=== PATIENT | female | born 1990 | race Caucasian/White ===

== ENCOUNTER → 2016-03-28 | Outpatient (CLI) | payer BC, OTHER ==
[~2016-03-28] VITALS: Ht 162.6 cm; Wt 61.2 kg
[~2016-03-28] MED LIST: AMBIEN 5 MG TABL5 M1 PO; B12INJ; BIRTH CONTROL PO; CARDIZEM PO; CELEBREX 200 M200 MG PO; CHLORTHALIDONE25 MG PO; COMPAZINE10 M1 PO; ESTRAGEN PO; ESTROGEN PO; HYDROCODON-ACE1 EAC5 PO; HYOSCYAMIN125 MCG/5; LEVSIN PO; LOPRESSOR 50 MG50 M1 PO; NEURONTIN 300300 M1 PO; OXYCONTIN15 MG PO; PLAQUENIL200 MG PO; SAVELLA50 MG PO; TOPROL XL50 MG PO; VITAMIN D 5050000 I1 PO; VOLTAREN GEL 1100 G1 TOP; ZIPSOR25 MG PO; quinine PO
--- NOTE | ~2016-03-28 | HPC ---
[facility] [place] [address] PAIN MANAGEMENT CONSULTATION Name: KARLA ELENA Room #: REG [facility] Cameron.#: [id number] Admission: 03/28/16 Attend Phys: Álvaro Knowles DO Discharge: Date of : 90 Report #: [id number] THIS REPORT FOR: //name// CC: Álvaro Prajapati MD DATE OF SERVICE: 03/28/2016 CHIEF COMPLAINT: Bilateral knee pain, bilateral leg pain, bilateral ankle pain, generalized joint pain. HISTORY OF PRESENT ILLNESS: As you know, patient is a 25-year-old female who suffers from generalized joint pain, mostly involving bilateral knees, bilateral ankles and periodically the elbows and hands. She continues workup from a rheumatologic standpoint, but no specific etiology has been determined. She returns today in followup visit for medication management. She has begun to wean off of her hydrocodone which is very good sign that her pain is improving. She returns today in followup visit for continuing weaning of hydrocodone therapy. ALLERGIES: CONTRAST AGENT, SULFA, MORPHINE, AMOXICILLIN. CURRENT MEDICATIONS: OxyContin 15 mg 3 times a day, hydrocodone 10/325 three times a day, diclofenac gel apply topically up to 4 times a day, Plaquenil 200 mg twice a day, zolpidem 5 mg p.o. at bedtime, metoprolol 50 mg once a day, control pill once a day, celecoxib 200 mg twice a day. SOCIAL HISTORY: The patient denies tobacco, alcohol or IV illicit drug use. 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 She is accompanied by her mother today. PHYSICAL EXAMINATION: VITAL SIGNS: Blood pressure 113/77, pulse 66, respiratory rate 14, unlabored. The patient 98% on room air. Height 5 feet 4 inches tall, weight 135 pounds, BMI calculated 23.2. GENERAL: Well-developed, well-nourished, well-hydrated 25-year-old female appearing stated age, placing current pain score no greater than 4/10. HEENT: Normocephalic, atraumatic. Pupil's equal, round, reactive to light. Extraocular muscles are intact. EXTREMITIES: Show no clubbing, no cyanosis, no edema. MUSCULOSKELETAL: There is some tenderness to palpation noted throughout all the myofascial pain receptors for myofascial pain syndrome such as fibromyalgia. There are no gross deformities of the hands, elbows, wrists, knees, ankles. On examination, there is palpatory tenderness over these joints generally. [address] [address] PAIN MANAGEMENT CONSULTATION Name: KARLA ELENA Room #: REG [facility]#: [id number] Admission: 03/28/16 Attend Phys: Álvaro Knowles DO Discharge: Date of : 90 Report #: [id number] ASSESSMENT: 1. Myofascial pain. 2. Bilateral lower extremity pain. 3. Bilateral knee pain. 4. Bilateral hip pain. 5. Bilateral ankle pain. 6. Chronic intractable pain. PLAN: 1. The patient has returned today in followup visit for adjustment of medications. The patient and I have discussed that recent evaluations need to reduce opioid dosing to below 90 morphine equivalents per day. The patient has been doing an excellent job of weaning slowly off her opioids. She was at an OxyContin 15 mg 4 times a day, taking hydrocodone 10/325 three times a day. She has been able to reduce to OxyContin 15 mg 3 times a day and hydrocodone 10/325 twice a day. We will stabilize with this dose. If this dose fall under the new CDC guidelines, we will attempt to continue reduction at our followup visit in 3 months. 2. The patient was provided a prescription of OxyContin 15 mg dose 1 tab p.o. t.i.d., #90, releases of today, 4 weeks from today, 8 weeks from today, 3 months' worth of medication. 3. The patient was provided a prescription of hydrocodone 10/325 one tab p.o. b.i.d. p.r.n. pain, #60, releases of today, 4 weeks from today, 8 weeks from today. I did advise the patient today if she can reduce the use of this medication even further, we will ultimately be able to discontinue its use entirely which I believe would be a bonus is in this patient's case. 4. The patient was provided a prescription of Voltaren gel 1% solution applied topically up to 4 times a day. She was given 5 tubes 100 grams each with multiple refills for 3 months. 5. We will see the patient back in followup visit in 3 months for medication management, earlier if she wishes to continue the weaning more rapidly. <ELECTRONICALLY SIGNED> By: Álvaro Knowles DO 03/29/16 0832 [id number] Álvaro Knowles DO /nt
[2016-03-28 10:55] VITALS: BP 113/77
== END ==
LOC: PAIN 07:07
DX: M25.562 Pain in left knee (principal); M25.561 Pain in right knee; M79.1 Myalgia

== ENCOUNTER → 2016-06-13 | Outpatient (CLI) | payer BC, OTHER ==
[~2016-06-13] VITALS: Ht 162.6 cm; Wt 61.2 kg
--- NOTE | ~2016-06-13 | HPC ---
[facility] [place] [address] [address] PAIN MANAGEMENT CONSULTATION Name: KARLA ELENA Room #: REG [facility] Cameron.#: [id number] Admission: 06/13/16 Attend Phys: Álvaro Konwles DO Discharge: Date of : 90 Report #: [id number] THIS REPORT FOR: //name// CC: Álvaro Prajapati MD DATE OF SERVICE: 06/13/2016 REFERRING PHYSICIAN: Dr. Freddie Prajapati. CHIEF COMPLAINT: Bilateral knee pain, bilateral leg pain, bilateral ankle pain, and generalized joint pain. HISTORY OF PRESENT ILLNESS: As you know, the patient is a 25-year-old female, who suffers from generalized pain disorder, involving mainly the weightbearing joints of the lower extremities including hips, knees, and ankles, but is also experiencing elbow and hand pain. She continues workup from a rheumatologic standpoint. Yet, no discernible etiology has been provided that may be causing the patient's current pain. She is now placing pain score at 2/10. States riding in a car, walking across hard floor, standing, rain, cold weather changes exacerbate symptoms. Medications, heat and cold compresses, rest and remaining inside appears to improve pain. She returns today in followup visit understanding our need to continue weaning her opioids to maintain the lowest most effective dose within the CDC guidelines range. She denied any side effects to the medication. She is not having any early refills. She has not lost or had prescriptions stolen. She has shown no aberrancy with the use of the medication. She has been on time with a request of therapy. She returns with no changes in her medical history. ALLERGIES: CONTRAST AGENT, SULFA, MORPHINE, and AMOXICILLIN. CURRENT MEDICATIONS: Diclofenac gel applied topically up to 4 times a day, hydrocodone/acetaminophen 10/325 1 tab q. 12 hours p.r.n. pain, OxyContin 15 mg 3 times a day, Plaquenil 200 mg twice a day, metoprolol 50 mg once a day, control pill once a day, Celecoxib 200 mg twice a day. SOCIAL HISTORY: The patient denies tobacco, alcohol, IV or illicit drug use. 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 She is unaccompanied today. IMAGING: No new imaging available. PHYSICAL EXAMINATION: VITAL SIGNS: Blood pressure 103/73, pulse 70, respiratory rate 14 and unlabored. The patient is 98% on room air. Height 5 feet 4 inches tall, weight [facility] [address] [place] [address] PAIN MANAGEMENT CONSULTATION Name: KARLA ELENA Room #: REG [facility]#: [id number] Admission: 06/13/16 Attend Phys: Álvaro Knowles DO Discharge: Date of : 90 Report #: [id number] 135 pounds, BMI calculated at 23.2. GENERAL: Well-developed, well-nourished, and well-hydrated. A 25-year-old female appearing her stated age. Pain is rated around 2/10. HEENT: Normocephalic and atraumatic. Pupils are equal, round, and reactive to light. Extraocular muscles are intact. Speech fluent. LUNGS: Clear. No wheezing, rhonchi, or rales. CARDIOVASCULAR: Regular. No appreciable gallop or rub. ABDOMEN: Soft, nontender, and nondistended. EXTREMITIES: Show no clubbing, no cyanosis, no edema. MUSCULOSKELETAL: The patient again shows no changes in the joint spaces. There is no erosive process noted from gross examination. Physical examination of the joints show no specific crepitus or reduction in mobility. Pain is elicited with palpation of all the joints of the lower extremities, including hips, knees, and ankles. Elbows and hands are also painful to palpation, though again no gross abnormalities. ASSESSMENT: 1. Myofascial pain. 2. Bilateral lower extremity pain. 3. Bilateral knee pain. 4. Bilateral hip pain. 5. Bilateral ankle pain. 6. Chronic intractable pain. PLAN: 1. The patient has returned today in followup visit with generalized arthritides of unknown origin. The patient continues to experience pain level of 2/10. She states that exacerbating factors are typically cold weather, weightbearing type of activities, but appears to be alleviated with medications and rest. The patient continues workup through rheumatology though no specific etiology for her generalized arthritides has been noted. She is currently taking OxyContin 15 mg 3 times a day along with hydrocodone 10/325 twice a day, which is under the CDC guideline recommendations for opioid management. She wishes to remain at this level at present. If further changes in the guidelines do occur, I did advise the patient, we would need to adjust to her main complaint. The patient states she understood and wishes to continue the medications at current dosing. Interestingly, it is noted the patient's pain score is actually down from her previous evaluation. This could be due to increasing warmer weather or the possibility that opioids are not providing as much benefit as originally believed. We will review this again at followup visit. 2. The patient was provided a prescription of OxyContin 15 mg dose one tab p.o. q. 8 hours, given #90 with releases of today, 4 weeks from today, and 8 weeks from today. 3 months' worth of medication. 3. The patient was provided a prescription of hydrocodone/acetaminophen 10/325 1 tab p.o. q. 12 hours p.r.n. for pain, #60, releases of today, 4 weeks from [facility] [address] [place] [address] PAIN MANAGEMENT CONSULTATION Name: KARLA ELENA Room #: REG [facility].R.#: [id number] Admission: 06/13/16 Attend Phys: Álvaro Knowles DO Discharge: Date of : 90 Report #: [id number] today, and 8 weeks from today. 4. The patient was provided refill of her Voltaren gel 500 gram tubes. She is to apply 4 inches topically up to 4 times a day with this medication. 5. We will see the patient back in followup visit in 3 months or earlier, if adjustments need to be made or specific etiology for her general arthritic symptoms are discovered. By: [id number] Álvaro Knowles DO /nt
[2016-06-13 12:46] VITALS: BP 103/73
== END | disposition home or self-care (01) ==
LOC: PAIN 07:01
DX: M79.1 Myalgia (principal); G89.29 Other chronic pain; M25.561 Pain in right knee; M25.562 Pain in left knee; M25.551 Pain in right hip; M25.552 Pain in left hip; M25.571 Pain in right ankle and joints of right foot; M25.572 Pain in left ankle and joints of left foot

== ENCOUNTER → 2016-09-05 | Outpatient (CLI) | payer BC, OTHER ==
[~2016-09-05] VITALS: Ht 162.6 cm; Wt 60.3 kg
[~2016-09-05] MED LIST changes: +MS CONTIN15 MG PO
--- NOTE | ~2016-09-05 | HPC ---
[facility] [place] [address] PAIN MANAGEMENT CONSULTATION Name: KARLA ELENA Room #: REG [facility] Cameron.#: [id number] Admission: 09/05/16 Attend Phys: Álvaro Knowles DO Discharge: Date of : 90 Report #: [id number] THIS REPORT FOR: //name// CC: Álvaro Prajapati DATE OF SERVICE: 09/05/2016 CHIEF COMPLAINT: Bilateral knee pain, bilateral leg pain, bilateral ankle pain, generalized joint pain. HISTORY OF PRESENT ILLNESS: As you know, the patient is a 26-year-old female who has returned today in followup visit with continued generalized pain disorder involving mainly weightbearing joints, including bilateral ankles, knees, hips, and low back. She returns today with indications that she needs to come off OxyContin as her third constitution party payer is no longer willing to provide this medication. They have provided a list of more preferred medications, long-acting Dilaudid, long-acting morphine or long-acting oxymorphone. She returns today to discuss options for treatment. She is placing pain score at 2/10, states that she is doing very well with current medication therapy, but understands she needs to make this change as she can no longer afford the OxyContin medication. She returns to discuss options. ALLERGIES: CONTRAST AGENT, MORPHINE, AMOXICILLIN, SULFA. CURRENT MEDICATIONS: OxyContin 15 mg 3 times a day, hydrocodone 10/325 twice a day, diclofenac gel applied topically up to 3 times a day, Plaquenil 200 mg twice a day, Toprol-XL 50 mg once a day, control pills once a day, celecoxib 200 mg twice a day. SOCIAL HISTORY: The patient denies tobacco, alcohol, IV or illicit drug use. She is accompanied by her mother who is present in the room today. IMAGING: No new imaging available. PHYSICAL EXAMINATION: VITAL SIGNS: Blood pressure 103/71, pulse 73, respiratory rate 14 unlabored. The patient is 100% on room air. Height 5 feet 4 inches tall, weight 133 pounds, BMI calculated 22.8. GENERAL: Well-developed, well-nourished, well-hydrated 26-year-old female appearing her stated age. She is placing pain score today at 1/10. HEENT: Normocephalic, atraumatic. Pupils equal, round, reactive to light. EXTREMITIES: Show no clubbing, no cyanosis, no edema. MUSCULOSKELETAL: The patient does have some palpatory tenderness over the weightbearing joints, knees, ankles and hips today. Active and passive range of motion causes no real change in pain. There is no crep[place] [address] PAIN MANAGEMENT CONSULTATION Name: KARLA ELENA Room #: REG [facility]#: [id number] Admission: 09/05/16 Attend Phys: Álvaro Knowles DO Discharge: Date of : 90 Report #: [id number] There is no gross abnormality changes, no erosive process is noted on examination. There is no erythema on the joints themselves. No edema. Weightbearing does intensify pain bilaterally. ASSESSMENT: 1. Myofascial pain. 2. Bilateral knee pain, bilateral hip pain. 3. Bilateral lower extremity pain. 4. Bilateral ankle pain. 5. Chronic intractable pain. 6. Opioid dependency. PLAN: 1. The patient has returned today in followup visit. She indicates that her third constitution party payer would no longer cover her OxyContin medication. She has been on this medication for a very long period of time and is now reporting pain score of 1/10. 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 We need to make the adjustments today. The patient's preferred medications per her pharmacy are long-acting Dilaudid, morphine and oxymorphone. I have advised the patient at this time I would not be willing to place her on long-acting Dilaudid whether this is her preferred medication or not. Her condition does not warrant this level of opioid medication. In regards to the oxymorphone, recently the FDA has requested that the manufacturers of oxymorphone voluntarily remove that drug from the market, we will not be placing this patient on that medication. This leaves us with MS Merida. Unfortunately, the patient does indicate an allergic reaction to MORPHINE, she had indicated at one time possibly anaphylactic. We did discuss this with the patient today. She and her mother cannot remember the exact response and they are willing to trial morphine once again, but I have indicated that if truly anaphylactic reaction, we cannot place her on this medication, which then leaves us with only buprenorphine which would be handled in the Butrans patch. 2. The patient was given a prescription of morphine 15 mg dose 3 times a day, number 90. I did advise the patient if she truly determines that she had an anaphylactic reaction with this medication, she is not to fill this prescription. If her response was more of just a pruritus kind of issue, that is not a typical for morphine. We are limited in what we can provide the patient from an opioid standpoint per the third constitution party payer restrictions. I did give her a prescription of 90 tablets only for one month to trial. If her side effects are too profound, then I would recommend she discontinue immediately and we will make adjustments in therapy. 3. We would recommend the patient actually be on buprenorphine in the form of a patch, 15 mcg q. week. We would prefer this medication, but unfortunately coverage of this medication is fairly inconsistent. Ultimately, we will be placing the patient on this medication if she cannot tolerate the morphine as we are out of options for long-term therapy in her case. She would not warrant the [facility] [address] [place] [address] PAIN MANAGEMENT CONSULTATION Name: KARLA ELENA Room #: REG [facility] Teresa#: [id number] Admission: 09/05/16 Attend Phys: Álvaro Knowles DO Discharge: Date of : 90 Report #: [id number] use of a long-acting Dilaudid. We will not be placing the patient on oxymorphone as it is being voluntarily recalled or possibly going into litigation in regards to the dangerous aspect of that drug. This leaves us with fentanyl and buprenorphine and fentanyl patches are not indicated in this patient's case. 4. We will see the patient back in followup visit in 1 month. If she does find that she has anaphylactic reactions to Morphine, we would recommend she do not fill this medication and return to the clinic to receive a prescription for Butrans patch. By: [id number] Álvaro Knolwes, DO /nt
[2016-09-05 11:07] VITALS: BP 103/71
== END | disposition home or self-care (01) ==
LOC: PAIN 06:54
DX: M79.1 Myalgia (principal); M25.561 Pain in right knee; M25.562 Pain in left knee; M25.551 Pain in right hip; M25.552 Pain in left hip; M25.571 Pain in right ankle and joints of right foot; M25.572 Pain in left ankle and joints of left foot; G89.29 Other chronic pain; F11.20 Opioid dependence, uncomplicated; Z88.2 Allergy status to sulfonamides; Z88.8 Allergy status to other drugs, medicaments and biological substances

== ENCOUNTER → 2016-10-03 | Outpatient (CLI) | payer BC, OTHER ==
[~2016-10-03] VITALS: Ht 162.6 cm; Wt 59.0 kg
--- NOTE | ~2016-10-03 | HPC ---
[facility] [address] [address] [place] [address] PAIN MANAGEMENT CONSULTATION Name: KARLA ELENA Room #: REG [facility] Cameron.#: [id number] Admission: 10/03/16 Attend Phys: Álvaro Knowles DO Discharge: Date of : 90 Report #: [id number] THIS REPORT FOR: //name// CC: Álvaro ANDRE BOX Freddie Box DATE OF SERVICE: 10/03/2016 CHIEF COMPLAINT: Bilateral knee pain, bilateral leg pain, bilateral ankle pain, generalized joint pain. HISTORY OF PRESENT ILLNESS: As you know, the patient is a 26-year-old female who returns today in followup visit for medication management. We have adjusted her medications to address CDC guidelines for chronic pain management of 90 morphine equivalents or less. The patient continues workup from a rheumatology standpoint to determine the cause of her symptoms, though nothing has been shown to be positive to date. It is agreed upon the patient is experiencing some type of rheumatologic issue, but the definitive diagnosis eludes the positions. She has been referred back to our clinic for continuation of medication therapy. She is indicating pain levels of around 0-2/10; states her pain is chronic in nature, aching in sensation; exacerbated with riding in a car or hard floor, standing for long periods of time, rain and cold weather; improves with medications, heat, cold compresses and Icy Hot. She returns requesting refill on medication for the next 3 months. She denies any side effects to the medications provided at last visit. ALLERGIES: CONTRAST AGENT, AMOXICILLIN, SULFA. CURRENT MEDICATIONS: Morphine sulfate 15 mg 3 times a day, hydrocodone/acetaminophen 10/325 one tab every 8 hours p.r.n. for pain, diclofenac gel apply topically up to 4 times a day, Plaquenil 200 mg twice a day, metoprolol 50 mg once a day, control pill 1 tab per day, celecoxib 200 mg twice a day. SOCIAL HISTORY: The patient denies tobacco, alcohol, IV or illicit drug use. She is unaccompanied today. IMAGING: No new imaging available. PHYSICAL EXAMINATION: VITAL SIGNS: Blood pressure 111/74, pulse 74, respiratory rate 14 unlabored. The patient is 97% on room air, height 5 feet 4 inches tall, weight 130 pounds, BMI calculated 22.3. GENERAL: Well-developed, well-nourished, well-hydrated 26-year-old female appearing her stated age, placing current pain score 0/10. [place] [address] PAIN MANAGEMENT CONSULTATION Name: KARLA ELENA Room #: REG [facility].#: [id number] Admission: 10/03/16 Attend Phys: Álvaro Knowles DO Discharge: Date of : 90 Report #: [id number] HEENT: Normocephalic, atraumatic. Pupils equal, round, reactive to light. Extraocular muscles are intact. Speech is fluent. EXTREMITIES: Show no clubbing, no cyanosis, no edema. MUSCULOSKELETAL: There is some palpatory tenderness over the weightbearing joints, knees, ankles, hips again today, no gross deformities. Active and passive range of motion of the hips, knees and ankles causes no real change in overall pain. There is no crepitus with movement. No erosive changes in the joints of the hands, elbows, hips, ankles or knees. ASSESSMENT: 1. Myofascial pain. 2. Bilateral knee pain. 3. Bilateral hip pain. 4. Bilateral ankle pain. 5. Chronic intractable pain. 6. Complicated medical therapy utilizing scheduled medications. PLAN: 1. The patient has returned today in followup visit indicating good efficacy with medication management. She feels the morphine and hydrocodone is working well for pain control. The patient is wishing to continue the therapy as currently prescribed. She is well below the CDCs recommended guidelines for opioid use for chronic pain. 2. The patient was provided a prescription of MS Contin 15 mg dose 1 tab p.o. t.i.d., #90, releases of today, 4 weeks from today, 8 weeks from today, 3 months' worth of medication. 3. The patient was provided a prescription of hydrocodone/acetaminophen 10/325 1 tab p.o. b.i.d., #60, releases of today, 4 weeks from today, 8 weeks from today. 4. We will see the patient back in followup visit in 3 months for ongoing medical therapy. We will discuss changes in treatment at that time if necessary. By: [id number] Álvaro Knowles DO /nt
[2016-10-03 12:39] VITALS: BP 111/74
== END | disposition home or self-care (01) ==
LOC: PAIN 07:15
DX: M79.1 Myalgia (principal); G89.29 Other chronic pain; M25.561 Pain in right knee; M25.562 Pain in left knee; M25.571 Pain in right ankle and joints of right foot; M25.572 Pain in left ankle and joints of left foot; M25.551 Pain in right hip; M25.552 Pain in left hip; F11.20 Opioid dependence, uncomplicated; Z88.2 Allergy status to sulfonamides; Z88.8 Allergy status to other drugs, medicaments and biological substances; Z79.899 Other long term (current) drug therapy